=== PATIENT | female | born 1960 | race Caucasian/White ===

== ENCOUNTER 2022-03-14 17:17 | Emergency (ER) | payer OTHER ==
[2022-03-14 19:10] LABS: HEMOGLOBIN 16.4 gm/dl (12.3-15.3); RED BLOOD COUNT 5.42 M/UL (4.00-5.10); WHITE BLOOD COUNT 9.3 K/UL (4.5-11.0)
[2022-03-14 19:32] LABS: BUN/CREATININE RATIO 17 (0-10)
[2022-03-14] MEDS ORDERED: ROXICODONE5 MG PO ×2 (20:49→20:54)
[2022-03-14] MEDS ORDERED: KLONOPIN TAB 00.5 MG PO (20:49)
== END 2022-03-14 21:58 | disposition home or self-care (01) ==
LOC: ER1 17:17
DX: R07.9 Chest pain, unspecified (principal); M54.9 Dorsalgia, unspecified; G89.29 Other chronic pain; I25.10 Atherosclerotic heart disease of native coronary artery without angina pectoris; F17.210 Nicotine dependence, cigarettes, uncomplicated; Z79.899 Other long term (current) drug therapy
CPT/HCPCS: 71045; 80053; 82550; 82553; 84484; 85025; 93005; 96374; 99285; J2405